=== PATIENT | female | born 2000 ===

== ENCOUNTER 2018-03-02 16:34 | Emergency (ER) | payer SELFPAY ==
[2018-03-02] MEDS: ACETAMINOPHEN 325 MG TAB PO (17:10)
== END 2018-03-02 18:07 | disposition home or self-care (01) ==
LOC: FTE 16:34
DX: S50.812A Abrasion of left forearm, initial encounter (principal); J45.909 Unspecified asthma, uncomplicated; W20.8XXA Other cause of strike by thrown, projected or falling object, initial encounter; Y92.9 Unspecified place or not applicable
CPT/HCPCS: 73090; 99283-25